=== PATIENT | male | born 1965 | race Caucasian/White ===

== ENCOUNTER → 2019-12-14 | Outpatient (CLI) | payer OTHER ==
[~2019-12-14] VITALS: Ht 188 cm; Wt 110.2 kg
[~2019-12-14] MED LIST: CYMBALTA30 MG PO; HYDROCODON-ACE1 EAC7 PO; HYDROCODONE-AP1 EA11 PO; IBU600 MG PER TUBE; IBUPROFEN 800800 M1 PO; LORCET 5-325 M1 EACH PO; PRINIVIL10 MG PO; TRAMADOL 50 MG50 MG PO
[2019-12-14 12:56] VITALS: BP 137/94
--- NOTE | 2019-12-14 13:08 | NUR ---
Pain Clinic Assessment: 1. History of Osteoarthritis: HANDS SPINE History of Rheumatoid Arthritis: DENIES 2. Height: 6 ft. 2 in. 188.0 cm. Weight: 243.0 lb. oz. 110.224 kg. Patient's BMI: 31.2 3. Vital Signs: BP: 137/94 Pulse: 84 Resp: 16 Temp: 02 Sat: 97 ECG Mon: 4. Pain Intensity: 10 5. Fall Risk: Dizziness: N Needs help standing or walking: Y Fallen in the last 3 months: N Fall risk comments: 6. Patient on Blood Thinner: None 7. History of Hypertension: Y 8. Opioid Therapy greater than 6 weeks: Y Opiate Contract Signed: 9. Risk Assessment Tool Provided: 10. Functional Assessment Tool: 11. Recreational Drug Use: Drug Type: Tobacco Use: Never Smoker Tobacco Type: Amount or Packs/day: How Many Years: Alcohol Use: No Frequency: Quant:
--- NOTE | 2020-01-04 09:56 | HPC ---
[facility] [place] [address] PAIN MANAGEMENT CONSULTATION Name: NERY SHEEHAN Room #: REG NIKOLE Jez#: [id number] Admission: 12/14/19 Attend Phys: Bk Guzman MD Discharge: Date of : 61 Report #: [id number] THIS REPORT FOR: cc: Rajwinder Ennis MD,Rajwinder Guzman,Bk Triplett MD ~ CC: Slick Guzman DATE OF SERVICE: 12/14/2019 CHIEF COMPLAINT: Severe right knee pain, bilateral shoulder pain. I am seeing the patient today at the request of Dr. Cortés and Dr. Barrett prior to surgery. We have also been assigned to see him by his workmen's compensation team. [employer] specifically has asked us to review his use of hydrocodone prior to surgery due Dr. Barrett is concerned that it may not be effective. Today's consultation was primarily focused on his use of medication and the treatment of his intractable pain. It is noted that the workmen's compensation claims management service has asked if we would take over his ongoing medication management. 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 In November 2018, he sustained an injury, which is documented in the orthopedic surgeon's record. Dr. Barrett's most recent note describes bilateral rotator cuff tears as well as a meniscus tear of his knee. He had recommended subacromial decompression and distal clavicle excision on each shoulder. Dr. Barrett also recommended arthroscopic procedure to further evaluate the pathology and felt that a partial meniscectomy would be of value. Because of his discomfort and his request for pain medications, Dr. Barrett recommended that he see a shipyard painter apprentice to help address and manage his concerns and need for opioid medication prior to any procedure being performed. The patient reports that prior to his injury, he was in his normal state of good health without injury or use of pain medicine. 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 They moved with two teenage daughters. He had been on the job for only one week when his injury occurred. He reports that he has been taking hydrocodone 5/325 mg every 4 hours for a total of 6 tablets per day. This equates to 180 tablets per month. His prescriber reportedly is primary care physician. He reports that he has been out of medication for [address] [address] PAIN MANAGEMENT CONSULTATION Name: NERY SHEEHAN Room #: REG CL Jez#: [id number] Admission: 12/14/19 Attend Phys: Bk Guzman MD Discharge: Date of : 61 Report #: [id number] several weeks and his pain has been severe -03/16. Today, pain at rest is a 9. He came in with crutches and a brace on his right knee. MEDICATIONS: As reported by patient, hydrocodone 5/325 one tablet q. 4 hours, lisinopril, ibuprofen 800 mg b.i.d. and tramadol. ALLERGIES: ASPIRIN. PAST MEDICAL HISTORY: Prior surgery for torn ACL. He denies all other medical illnesses. He is on an antihypertensive, but did not note it in his assessment. REVIEW OF SYSTEMS: Positive for fatigue and weakness, weight gain and numbness and tingling sensations in the right hand. SOCIAL HISTORY: He grew up in [place] the [facility]. He has never lived in the [place] until he moved to [place] 2 years ago with his . He reports that his is currently working on her Ph.D. They have two teenage daughters. Because of [facility] restrictions, he says that the daughters have moved to [place] to live with an older sister. There are no longer living in the house with him. He has worked off and on since his workmen's compensation injury. He has been in and out of physical therapy and occupational therapy program. He has built as a football player and reports that he did play football in the at the [employer]. He reports that he recently returned to [place] to visit the family of a friend who from [place] [address]. He aggravated his knee injury near the baggage carousel and his pain has been worse. He was seen in an urgent care center and they recommended the crutches. The patient denies use of tobacco, alcohol or any illicit drugs. He has not tried marijuana. Opioid risk tool score 2, review for addiction risk is 0, lowest possible risk. Impacted pain score is 53 suggesting significant impacts on daily function by his chronic pain, now over a year old. PHYSICAL EXAMINATION: GENERAL: Pleasant gentleman 6 feet 2 inches, 243 pounds, BMI is 31.2. VITAL SIGNS: Blood pressure 137/94, heart rate 84, respirations 16, O2 sat 100% on room air. Pain intensity is 10. MUSCULOSKELETAL: Moves independently from sitting to standing position, but has some antalgic features to his gait. Right knee reveals no effusion. There is tenderness above the patella and below. He has mild epicondyle tenderness. No laxity. Both shoulders are tender at the AC joint. He has mild pain with internal and external rotation as well as abduction. [facility] [address] [place] [address] PAIN MANAGEMENT CONSULTATION Name: NERY SHEEHAN Room #: [facility] Center[facility] [id number] Admission: 12/14/19 Attend Phys: Bk Guzman MD Discharge: Date of : 61 Report #: [id number] IMPRESSION: Chronic pain, most prominent in the right knee, but he also complains of pain in both shoulders. He has had extensive evaluation by Orthopedic Surgery and I have reviewed Dr. Barrett's assessment with him. Right knee meniscus tear, right rotator cuff tear likely full thickness, left high-grade partial thickness rotator cuff tear. Injuries confirmed by MRI. RECOMMENDATIONS: I discussed the importance of remaining active. A sedentary approach to his pain will likely result in further deconditioning, will slow his recovery following surgery and will make his pain worse. We discussed the importance of a daily, regular exercise program. He was open to using a bicycle for exercise. I have asked him to clear that with his orthopedic surgeons. He can do this prior to surgery carefully and it may improve his recovery. We discussed this as pre-therapy. Regarding medication, I discussed providing him with some hydrocodone through our opioid medication management program, which follows the CDC guideline closely. By report, he was taking 30 mg of hydrocodone daily until he ran out 2 weeks ago. He reports improvement in his pain and function with hydrocodone. After his departure from the clinic, I reviewed the [facility] prescription drug monitoring program information. I note that since February of 2019 through 12/06/2019, he has had only tramadol and only one prescription for hydrocodone 15 tablets given on 10/17/2019. He has not been on a regular hydrocodone and this was not made clear to me during our visit. I discussed using hydrocodone to help manage his pain, improve daily function cautiously prior to surgery. We discussed long-term consequences of using an opioid on a daily basis. Dependency can occur even in the absence of addiction. There are numerous side effects to higher dose opioids including constipation and effect on testosterone. We reviewed our written opioid agreement and it was signed, a single prescriber and pharmacy. All prescriptions will be followed closely by prescription drug monitoring program as we did today after his visit. Urine drug screens are performed randomly as part of the terms of our agreement. No new or early prescriptions would be allowed. Discussed the importance of safeguarding all medications to make sure that they remain in his possession at all times. I placed a phone call to the patient of that after his departure to discuss the discrepancy in the prescription drug monitoring program information and his historical report of hydrocodone use. I will allow hydrocodone 5/[address] [address] PAIN MANAGEMENT CONSULTATION Name: NERY SHEEHAN Room #: REG CLI Jez#: [id number] Admission: 12/14/19 Attend Phys: Bk Guzman MD Discharge: Date of : 61 Report #: [id number] 4 times daily prior to surgery. Discontinue tramadol altogether. MME will be 20. Followup visit scheduled in 1 month. <ELECTRONICALLY SIGNED> By: Bk Guzman MD 01/04/20 0956 [id number] [id number] Bk Guzman MD /nt
== END ==
LOC: PAIN 08:15
PROVIDERS: ATTEND Anesthesiology Pain Medicine
DX: G89.29 Other chronic pain (principal); M25.511 Pain in right shoulder; M25.512 Pain in left shoulder; M25.561 Pain in right knee; K80.80 Other cholelithiasis without obstruction; Z79.891 Long term (current) use of opiate analgesic

== ENCOUNTER → 2020-01-08 | Outpatient (CLI) | payer OTHER ==
[~2020-01-08] VITALS: Ht 188 cm; Wt 118.5 kg
--- NOTE | ~2020-01-08 | HPC ---
[facility] [place] [address] PAIN MANAGEMENT CONSULTATION Name: NERY SHEEHAN Room #: REG NIKOLE Kristina.#: [id number] Admission: 01/08/20 Attend Phys: Bk Guzman MD Discharge: Date of : 61 Report #: [id number] THIS REPORT FOR: cc: Rajwinder Ennis MD, Dorothy MD Morgan, Richard L. MD ~ CC: Brenda Slick Barrett MD DATE OF SERVICE: 01/08/2020 CHIEF COMPLAINT: Bilateral shoulder pain, right knee pain. The patient is an angry 54-year-old whom I am seeing today for chronic pain. Throughout his visit, he complained about the lack of attention he believes he should be accorded due to his significant degree of pain. He injured himself within the first 2 weeks of employment. This is reviewed in his initial consultation from 12/14/2019. [place] My initial dictation said it was at a baggage care cell, which I wrote in my notes. He tells me it was actually coming off of a moving walkway. He felt a twisting motion in his knee as he stepped off the walkway aggravating his injury. He believes it was due to the "instability" of his right knee. Today, his pain intensity is 10/10, sharp, stabbing, shooting and constant. It is made worse with all activities including sitting activity, riding a bike. He complains of pain in bed at night. Medication provides some relief. We had a long discussion today about his hydrocodone. He had previously been taking hydrocodone 5/325 and taking it four times daily. His last prescription for hydrocodone was given by ____ in August, so he had had no hydrocodone, other than the prescription from Gladys Thorne who gave him 15 tablets on 10/17/2019. He had led me to believe that he was taking up to 6 a day. When I sent his prescriptions electronically, I sent it for ____ mg tablets an increase in what he had been receiving. I have told him that I would provide him with 7.5 mg tablets. Because of the discrepancy in the prescription drug monitoring program, I changed it to the lower dose. I also did place a phone call to the patient after his departure to discuss the discrepancy and let him know what I was doing. It was left on his cell phone number. I did discontinue his tramadol at last visit. His MME at last visit was 20. Today, the patient said that this is wholly inadequate and that no one understands the degree of pain that he has on a daily basis. He reports that he [address] [place] [address] PAIN MANAGEMENT CONSULTATION Name: NERY SHEEHAN Room #: REG CLEdwar Story#: [id number] Admission: 01/08/20 Attend Phys: Bk Guzman MD Discharge: Date of : 61 Report #: [id number] is suffering greatly as a result of his pain. PHYSICAL EXAMINATION: VITAL SIGNS: He is 6 feet 2 inches, 261 pounds, BMI is 33.5, blood pressure 137/99, heart rate 89, respirations 16, O2 sat 100. GENERAL: Again, his affect is angry. EXTREMITIES: He can move independently from sitting to standing position, walks with markedly antalgic gait. He is wearing a strap below the patella. He was wearing a heavier brace at last visit, but he was discarded that fortunately. Examination of the knee reveals no swelling or redness. The knee is tender throughout. Straight leg raising exacerbates pain. He has pain with any sort of lateral movement testing. He has pain with flexion as well. Both shoulders are uncomfortable with range of motion. IMPRESSION: 1. Chronic pain syndrome. 2. Workmen's compensation with anger and frustration impeding recovery. 3. Pain is high and seems to exceed the degree of physical findings. RECOMMENDATIONS: 1. Begin Cymbalta. I discussed with him the role of Cymbalta as a pain medication. I openly let him know that Cymbalta has classified as an antidepressant, but I was providing it for pain. I think we will have some beneficial effects, he will take it once a day in the morning. 2. Co-analgesic of a nonsteroidal anti-inflammatory drug. He has had experience with numerous medications in the past. I gave him a choice. He shows ibuprofen and I will prescribe 600 mg t.i.d. A lengthy discussion regarding side effects including GI side effects renal side effects and cardiac. He is to discontinue his medication if he has any dyspepsia and to watch his bowel movements closely for any changes in color. If he is taking on a daily basis, I have also encouraged him to drink lots of fluids to ensure that we avoid nonsteroidal anti-inflammatory drug related nephropathy. I discussed also with him the very remote, but possible increased risk in cardiovascular events and he should not ignore chest pain or angina-like symptoms. 3. I am going to go ahead and increase his hydrocodone from 5 to 7.5, 4 tablets a day. We will give him a morphine milligram equivalency of 30. He should take it carefully and cautiously safeguarded from others. He is on an opioid agreement. I have reviewed the prescription drug monitoring information. His last prescription was filled on 12/14/2019. Hopefully, the increase in medication along with polypharmacy will be helpful. Surgery is anticipated. I am concerned because of the significant psychological component to his pain with the anger and frustration. This is well shown to [facility] [address] [place] [address] PAIN MANAGEMENT CONSULTATION Name: NERY SHEEHAN Room #: REG CLEdwar Story#: [id number] Admission: 01/08/20 Attend Phys: Bk Guzman MD Discharge: Date of : 61 Report #: [id number] impede recovery. Perhaps Omarmbalta will ease some of that with his pain modulating affect. Followup visit planned in 1 month. By: [id number] Bk Guzman MD /nt
[2020-01-08 10:56] VITALS: BP 137/99
--- NOTE | 2020-01-08 11:26 | NUR ---
Pain Clinic Assessment: 1. History of Osteoarthritis: HANDS SPINE History of Rheumatoid Arthritis: DENIES 2. Height: 6 ft. 2 in. 188.0 cm. Weight: 261.2 lb. oz. 118.480 kg. Patient's BMI: 33.5 3. Vital Signs: BP: 137/99 Pulse: 89 Resp: 16 Temp: 02 Sat: 100 ECG Mon: 4. Pain Intensity: 10 5. Fall Risk: Dizziness: N Needs help standing or walking: N Fallen in the last 3 months: Y Fall risk comments: 6. Patient on Blood Thinner: None 7. History of Hypertension: Y 8. Opioid Therapy greater than 6 weeks: Y Opiate Contract Signed: 9. Risk Assessment Tool Provided: low-0 10. Functional Assessment Tool: 53/70 11. Recreational Drug Use: Never Drug Type: Tobacco Use: Never Smoker Tobacco Type: Amount or Packs/day: How Many Years: Alcohol Use: No Frequency: Quant:
== END ==
LOC: PAIN 06:49
PROVIDERS: ATTEND Anesthesiology Pain Medicine
DX: G89.4 Chronic pain syndrome (principal); M25.511 Pain in right shoulder; M25.512 Pain in left shoulder; M25.561 Pain in right knee; Z79.899 Other long term (current) drug therapy

== ENCOUNTER → 2020-01-25 | Day surgery (SDC) | payer OTHER ==
[~2020-01-25] MED LIST changes: +ADVIL200 M1 PO
== END | disposition home or self-care (01) ==
LOC: LAB 07:39
PROVIDERS: ATTEND Student in an Organized Health Care Education/Training Program
DX: Z01.812 Encounter for preprocedural laboratory examination (principal); Z20.828 Contact with and (suspected) exposure to other viral communicable diseases; M25.561 Pain in right knee; M25.511 Pain in right shoulder; M25.512 Pain in left shoulder; Z79.899 Other long term (current) drug therapy; Z88.8 Allergy status to other drugs, medicaments and biological substances

== ENCOUNTER 2020-01-29 06:41 | Day surgery (SDC) | payer OTHER ==
[~2020-01-29] VITALS: Ht 188 cm; Wt 113.4 kg
--- NOTE | ~2020-01-29 | O ---
[facility] [place] [address] OPERATIVE REPORT Name: NERY SHEEHAN Room #: 150-3 [facility] M..#: [id number] Admission: 01/29/20 Attend Phys: Slick Cortés MD Discharge: Date of : 61 Report #: [id number] THIS REPORT FOR: cc: Rajwinder Ennis MD,Rajwinder Cortés,Slick Thacker MD ~ CC: Slick Ennis DATE OF SERVICE: 01/29/2020 PREOPERATIVE DIAGNOSIS: Right knee sprain with medial meniscus tear. 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 PROCEDURE: Right knee arthroscopy with partial medial meniscectomy and debridement of medial femoral condyle chondromalacia and debridement of patellofemoral chondromalacia. SURGEON: Slick Cortés MD INDICATIONS: This 54-year-old gentleman injured the right knee while working a number of months ago. Clinical exam and MRI study suggest a tearing of the medial meniscus as well as some generalized chondromalacia. We have elected to go ahead with arthroscopic debridement. DESCRIPTION OF PROCEDURE: The patient was taken to the operating room where he was placed under general anesthesia. Prophylactic intravenous antibiotics were administered. The right knee and leg were meticulously prepped and draped and a thigh tourniquet inflated to 300 mmHg. A lateral suprapatellar inflow cannula was placed and the knee was inflated with normal saline. The arthroscope and shaver were introduced through parapatellar tendon approaches. The various compartments were sequentially visualized and documented with arthroscopic photography. The medial compartment revealed a moderate tearing in the medial meniscus, which appeared to be a combination of both degenerative and traumatic changes. This involved about the inner 1/2 of the meniscus extending from the anterior medial corner back to the posterior horn. There was a moderate sized flap tear, which had flipped upward in the meniscal femoral recess. This was flipped back down into the joint and then resected. The irregular degenerative tearing of the meniscus was debrided, leaving about the outer 1/2 of the meniscus intact and stable. The cartilage surface on the medial tibial plateau demonstrated mild generalized fissuring and grooving with grade 1 to very mild grade [address] [address] OPERATIVE REPORT Name: NERY SHEEHAN Room #: 150-3 [facility].#: [id number] Admission: 01/29/20 Attend Phys: Slick Cortés MD Discharge: Date of : 61 Report #: [id number] chondromalacia damage. There was more severe chondromalacia in the mid weightbearing portion of the medial femoral condyle, which was grade 3. There were no areas of exposed subchondral bone, but there was some loose delaminating cartilage around the margin of this defect, which was debrided back to a smooth even and stable edge. The intercondylar notch revealed normal cruciate ligaments, which appeared to be functioning nicely. There was some synovial hypertrophy and also some bony spurring at the margin of the notch, which was debrided in a limited notchplasty. There was a similar bony spurring just anterior to the anterior cruciate ligament insertion on the tibial plateau, which seemed to impinge when the knee was placed into full extension. This area of bony spurring was also debrided. Once completed, there was no longer any impingement and the notch seemed to be freed up nicely. The cruciate ligaments appeared to be normal. The lateral compartment reveals mild fraying along the inner margin of the lateral meniscus, only very limited debridement here was necessary. There is good cartilage on both the lateral femoral condyle and the lateral tibial plateau without significant damage and no further debridement there was necessary. The patellofemoral articulation reveals rather severe generalized chondromalacia involving both the patella and the trochlear region of the distal femur. This is a grade 3 damage with some loose, irregular delaminating fragments around the margin, particularly on the trochlea. These areas were very gently debrided, removing only the loose and irregular cartilage leaving as much good cartilage in place as possible. Some loose debris in the suprapatellar pouch was also evacuated. At this point, the entire knee was copiously irrigated. All excess fluid was evacuated from the knee. The knee was then injected with 80 mg of Depo-Medrol and 20 mL of 0.5% Marcaine with epinephrine. The puncture sites were closed with interrupted nylon suture. A sterile dressing was applied. The patient was awakened and returned to recovery room in good condition. By: [id number] Slick Cortés MD /vivek
[2020-01-29 08:00] VITALS: BP 135/95
--- NOTE | 2020-01-29 09:28 | EKG ---
[facility] [place] [place] [address] ELECTROCARDIOGRAM REPORT Name: NERY SHEEHAN Room #: 150-3 [facility] M.R.#: [id number] Admission: 01/29/20 Attend Phys: Slick Cortés MD Discharge: Date of : 61 Report #: [id number] THIS REPORT FOR: cc: Rajwinder Ennis MD, Dorothy MD Lundgren,Agusto Joya MD MERGED WITH [facility] THIS REPORT FOR: //name// [facility] Test Date: 2020-01-29 Test Time: 07:20:21 Pat Name: NERY SHEEHAN Department: Room: 150 Gender: M Collections Officer: FARNAZ : 1965 Requested By: Slick Cortés Order Number: [id number] MD: Agusto Marcos Measurements Intervals Creola Rate: 69 P: 14 CO: 172 QRS: -35 QRSD: 95 T: 50 QT: 433 QTc: 464 Interpretive Statements Sinus rhythm Abnormal R-wave progression, early transition Inferior infarct, old No previous ECG available for comparison Electronically Signed On 01-29-2020 9:28:34 CDT by Agusto Marcos [email or web address] <ELECTRONICALLY SIGNED> By: Agusto Marcos MD, [facility] 01/29/20 0928 9 9 Agusto Marcos MD, [facility] /EPI
== END 2020-01-29 08:38 | disposition home or self-care (01) ==
LOC: OR → TBA 06:41 → OR 08:38
PROVIDERS: ATTEND Orthopaedic Surgery
DX: M23.221 Derangement of posterior horn of medial meniscus due to old tear or injury, right knee (principal); M23.300 Other meniscus derangements, unspecified lateral meniscus, right knee; M94.261 Chondromalacia, right knee; M25.561 Pain in right knee; I10 Essential (primary) hypertension; Z98.890 Other specified postprocedural states; Z79.899 Other long term (current) drug therapy; Z88.8 Allergy status to other drugs, medicaments and biological substances
CPT/HCPCS: 50010; 50101; 50405; 56526; 57103; 57180; 62110; 62900; 70005

== ENCOUNTER → 2020-02-05 | Outpatient (CLI) | payer OTHER ==
--- NOTE | ~2020-02-05 | HPC ---
[facility] [place] [address] PAIN MANAGEMENT CONSULTATION Name: NERY SHEEHAN Room #: REG NIKOLE RachelMaryKelly#: [id number] Admission: 02/05/20 Attend Phys: Bk Guzman MD Discharge: Date of : 61 Report #: [id number] THIS REPORT FOR: cc: Rajwinder Ennis MD,Bk Theodore MD, MD ~ CC: Slick Barrett MD DATE OF SERVICE: 02/05/2020 Followup visit for bilateral shoulder pain and right knee pain. Workmen's compensation. The patient returns to pain clinic today and has had surgery with Dr. Slick Cortés. He had an arthroscopic meniscectomy. His knee is wrapped. He is still using a cane. I have talked to him about the importance of proceeding on with physical therapy, so that he can strengthen his knee, the most important emanuel to recovery and also to help control his pain. He still complains of pain in his shoulders. Today is an improvement over his last visit on 01/08/2020. He was quite angry at his last visit, angry at circumstances, angry at the world, angry at the fact that the Workmen's Comp system was cumbersome to him, unhappy that he could not get things fixed immediately. Today, he seems calmer, more relaxed and his pain intensity is a 7.5. MEDICATIONS: Include duloxetine 30 mg. I will renew it today for 90 tablets 1 tablet a day. PHYSICAL EXAMINATION: Pleasant, fit-appearing 54-year-old. Blood pressure is 135/88, heart rate is 80. Moves independently from sitting to standing position, ambulates with a cane. Right knee is wrapped. He has tenderness in both shoulders. IMPRESSION: 1. Chronic pain syndrome. 2. Management of high risk medications under terms of written opioid agreement. His opioid agreement was signed today. 3. Frustration and anger improved today. RECOMMENDATION: Counseled about the importance of returning to physical therapy. Optimistic outlook was provided. He should recover. [facility] [address] [place] [address] PAIN MANAGEMENT CONSULTATION Name: RAMYSCOOBYAilynNERY Room #: REG CLEdwar Story#: [id number] Admission: 02/05/20 Attend Phys: Bk Guzman MD Discharge: Date of : 61 Report #: [id number] Discussed the importance of using the lowest effective dose of his medication, particularly the opioids. He has been on them for about a year and has never had a halfway opioid therapy. We would like to taper him off of medications and I told him at next visit we will try to reduce his oxycodone from 7.5 mg tablets to 5 mg tablets. Follow up in 1 month. By: [id number] Bk Guzman MD /nt
== END ==
LOC: PAIN 06:57
PROVIDERS: ATTEND Anesthesiology Pain Medicine
DX: G89.4 Chronic pain syndrome (principal); F11.20 Opioid dependence, uncomplicated; R45.4 Irritability and anger

== ENCOUNTER → 2020-03-04 | Outpatient (CLI) | payer OTHER ==
[~2020-03-04] VITALS: Ht 188 cm; Wt 118.4 kg
[~2020-03-04] MED LIST changes: +IBU600 MG PO
--- NOTE | ~2020-03-04 | HPC ---
[facility] [place] [address] PAIN MANAGEMENT CONSULTATION Name: NERY SHEEHAN Room #: REG NIKOLE JuárezKellyMaryKelly#: [id number] Admission: 03/04/20 Attend Phys: Bk Guzman MD Discharge: Date of : 61 Report #: [id number] THIS REPORT FOR: cc: Rajwinder Ennis MD,Rajwinder Guzman,Bk Triplett MD ~ CC: Rajwinder Guzman DATE OF SERVICE: 03/04/2020 Followup visit for medication management for chronic pain. The patient was in the pain clinic today for consultation. I spent about 20 minutes with him today discussing recovery and the importance of regaining full function without the need for chronic pain medication. His pain intensity is improved with surgery and time. He is using lower doses of opioid and our intent to continue tapering this further over the course of the next month or two was reviewed. I would like to have him off of opioids within the next 90 days or so. His duloxetine 30 mg seems to be helpful as well. I think overall he is recognizing the need to look positively at his outcome from that physical therapy and return to full function are well within his reach. Pain report is still around 7 with movement. His affect; however, is markedly improved. He seems more positive, upbeat, less angry at circumstances. He has had his arthroscopy and has recovered nicely from it. Impact pain score is 36 today, that is an improvement from his initial presentation when he was so frustrated. His impacted pain score on that date was 53. Improvements have been noted in several levels including mood, enjoyment of life, relationships with others. He still scores high for walking ability, normal work and sleep 01/14. PHYSICAL EXAMINATION: GENERAL: He is a very fit-appearing 54-year-old. VITAL SIGNS: Blood pressure 140/103, heart rate 88, respirations 16, O2 sat 98. MUSCULOSKELETAL: He has some tenderness bilaterally of the shoulders, but good range of motion. Examination of the right knee reveals tenderness, but good improvement and ability to flex and extend. There is no lateral instability. IMPRESSION: 1. Chronic pain syndrome. 2. Management of high risk medications on opioid agreement. We will continue to discuss the importance of tapering and using the lowest effective dose. [address] [address] PAIN MANAGEMENT CONSULTATION Name: NERY SHEEHAN Room #: REG CL Kristina.#: [id number] Admission: 03/04/20 Attend Phys: Bk Guzman MD Discharge: Date of : 61 Report #: [id number] Long-term goal is elimination of opioid medications as a management. PLAN: I will continue his medications at current dosing. I have discussed using half a tablet and we will see him back in 4-6 weeks. Prescription will be for lower dose and fewer pills as we continue to taper him off of medication. He is in line with these goals. By: [id number] MD marcelino Larkin
[2020-03-04 10:34] VITALS: BP 140/103
--- NOTE | 2020-03-04 11:07 | NUR ---
Pain Clinic Assessment: 1. History of Osteoarthritis: HANDS SPINE History of Rheumatoid Arthritis: DENIES 2. Height: 6 ft. 2 in. 188.0 cm. Weight: 261.0 lb. oz. 118.389 kg. Patient's BMI: 33.5 3. Vital Signs: BP: 140/103 Pulse: 88 Resp: 16 Temp: 02 Sat: 98 ECG Mon: 4. Pain Intensity: 7 5. Fall Risk: Dizziness: N Needs help standing or walking: N Fallen in the last 3 months: N Fall risk comments: 6. Patient on Blood Thinner: None 7. History of Hypertension: Y 8. Opioid Therapy greater than 6 weeks: Y Opiate Contract Signed: 9. Risk Assessment Tool Provided: low-0 10. Functional Assessment Tool: 11. Recreational Drug Use: Never Drug Type: Tobacco Use: Never Smoker Tobacco Type: Amount or Packs/day: How Many Years: Alcohol Use: No Frequency: Quant:
== END ==
LOC: PAIN 07:02
PROVIDERS: ATTEND Anesthesiology Pain Medicine
DX: G89.29 Other chronic pain (principal); F11.20 Opioid dependence, uncomplicated

== ENCOUNTER → 2020-04-01 | Outpatient (CLI) | payer OTHER ==
[~2020-04-01] VITALS: Ht 188 cm; Wt 117.3 kg
--- NOTE | ~2020-04-01 | HPC ---
[facility] [place] [address] PAIN MANAGEMENT CONSULTATION Name: NERY SHEEHAN Room #: REG NIKOLE JuárezKellyMary.#: [id number] Admission: 04/01/20 Attend Phys: Bk Guzman MD Discharge: Date of : 61 Report #: [id number] CC: AZALEA Guzman DATE OF SERVICE: 04/01/2020 Followup visit for the pain and medication management. The patient returns to pain clinic today for renewal of medication. I am seeing him at monthly intervals. Our goal is to taper him from his hydrocodone as he continues to see improvement. He has seen improvement in range of motion, but still complains bitterly of daily pain scoring his pain as a 7/10 despite hydrocodone 7.5 four times daily. He also complains of pain in his shoulders and believes that he will need surgery at some point in time. Our expressed goal is to continue tapering his medication as his knee improves. We had a spirited discussion today about reducing his hydrocodone from 7.5/325 four times a day to 5/325. We decided to take it slower by giving him 60 tablets of hydrocodone 7.5 and 60 tablets of hydrocodone 5.0. In this way that he can taper his medications slowly to 25 mg a day from 30 mg a day. He is a fairly aggressive the patient and challenged my recommendations on several levels. I assured him that I respected his complaints of pain and the intensity that he described. I also feel that the longer around the clock opioids are provided for such injuries will lead to dependence on opioids for management of chronic intractable pain. I would like to continue to work towards the lowest effective dose. In no way that I disrespect him or suggest that he was amplifying his pain. We both agreed that reduction in his opioid dose and hopefully eventually going off of them might be a reasonable goal. PHYSICAL EXAMINATION: GENERAL: He is a fit-appearing 54-year-old, 6 feet 2 inches, BMI of 33.2. VITAL SIGNS: Blood pressure 155/97, pulse is 87, respirations 20, O2 sat 100. He is wearing a mask due to COVID restrictions. MUSCULOSKELETAL: Moves independently from sitting to standing position. His gait is moderately antalgic. He has some restrictions in range of motion in flexion of the left knee and mild tenderness. Swelling is diminished. No redness or inflammation. IMPRESSION: 1. Chronic pain syndrome. 2. Management of high risk medications on an opioid agreement with efforts of tapering. Prescriptions were provided for 1 month at a reduction to 25 mg per day. By: [id number] Bk Guzman MD /nt
[2020-04-01 10:33] VITALS: BP 155/97
--- NOTE | 2020-04-01 10:38 | NUR ---
Pain Clinic Assessment: 1. History of Osteoarthritis: HANDS SPINE History of Rheumatoid Arthritis: DENIES 2. Height: 6 ft. 2 in. 188.0 cm. Weight: 258.6 lb. oz. 117.300 kg. Patient's BMI: 33.2 3. Vital Signs: BP: 155/97 Pulse: 87 Resp: 20 Temp: 02 Sat: 100 ECG Mon: 4. Pain Intensity: 7 5. Fall Risk: Dizziness: N Needs help standing or walking: N Fallen in the last 3 months: N Fall risk comments: 6. Patient on Blood Thinner: None 7. History of Hypertension: Y 8. Opioid Therapy greater than 6 weeks: Y Opiate Contract Signed: 9. Risk Assessment Tool Provided: low-0 10. Functional Assessment Tool: 11. Recreational Drug Use: Never Drug Type: Tobacco Use: Never Smoker Tobacco Type: Amount or Packs/day: How Many Years: Alcohol Use: No Frequency: Quant:
== END ==
LOC: PAIN 06:49
PROVIDERS: ATTEND Anesthesiology Pain Medicine
DX: G89.4 Chronic pain syndrome (principal); F11.20 Opioid dependence, uncomplicated

== ENCOUNTER → 2020-04-29 | Outpatient (CLI) | payer OTHER ==
[~2020-04-29] VITALS: Ht 188 cm; Wt 115.7 kg
[~2020-04-29] MED LIST changes: +ENDOCET 5-3251 EACH PO
[2020-04-29 11:19] VITALS: BP 127/92
--- NOTE | 2020-04-29 11:34 | NUR ---
Pain Clinic Assessment: 1. History of Osteoarthritis: HANDS SPINE History of Rheumatoid Arthritis: DENIES 2. Height: 6 ft. 2 in. 188.0 cm. Weight: 255.0 lb. oz. 115.668 kg. Patient's BMI: 32.7 3. Vital Signs: BP: 127/92 Pulse: 98 Resp: 20 Temp: 02 Sat: 100 ECG Mon: 4. Pain Intensity: 6.5 5. Fall Risk: Dizziness: N Needs help standing or walking: N Fallen in the last 3 months: N Fall risk comments: 6. Patient on Blood Thinner: None 7. History of Hypertension: Y 8. Opioid Therapy greater than 6 weeks: Y Opiate Contract Signed: 9. Risk Assessment Tool Provided: low-0 10. Functional Assessment Tool: 11. Recreational Drug Use: Never Drug Type: Tobacco Use: Never Smoker Tobacco Type: Amount or Packs/day: How Many Years: Alcohol Use: No Frequency: Quant:
== END ==
LOC: PAIN 06:49
PROVIDERS: ATTEND Anesthesiology Pain Medicine
DX: M25.561 Pain in right knee (principal); M25.512 Pain in left shoulder; M25.511 Pain in right shoulder; Z79.899 Other long term (current) drug therapy

== ENCOUNTER → 2020-06-27 | Outpatient (CLI) | payer OTHER ==
[~2020-06-27] VITALS: Ht 188 cm; Wt 109.9 kg
[2020-06-27 14:19] VITALS: BP 107/73
--- NOTE | 2020-06-27 14:27 | NUR ---
Pain Clinic Assessment: 1. History of Osteoarthritis: HANDS SPINE History of Rheumatoid Arthritis: DENIES 2. Height: 6 ft. 2 in. 188.0 cm. Weight: 242.2 lb. oz. 109.861 kg. Patient's BMI: 31.1 3. Vital Signs: BP: 107/73 Pulse: 83 Resp: 16 Temp: 02 Sat: 97 ECG Mon: 4. Pain Intensity: 6 5. Fall Risk: Dizziness: N Needs help standing or walking: N Fallen in the last 3 months: N Fall risk comments: 6. Patient on Blood Thinner: None 7. History of Hypertension: Y 8. Opioid Therapy greater than 6 weeks: Y Opiate Contract Signed: 9. Risk Assessment Tool Provided: low-0 10. Functional Assessment Tool: 11. Recreational Drug Use: Never Drug Type: Tobacco Use: Never Smoker Tobacco Type: Amount or Packs/day: How Many Years: Alcohol Use: No Frequency: Quant:
== END ==
LOC: PAIN 06:51
PROVIDERS: ATTEND Anesthesiology Pain Medicine
DX: G89.4 Chronic pain syndrome (principal); M25.561 Pain in right knee; M25.511 Pain in right shoulder; M25.512 Pain in left shoulder; Z79.891 Long term (current) use of opiate analgesic

== ENCOUNTER → 2020-07-25 | Outpatient (CLI) | payer OTHER ==
[~2020-07-25] VITALS: Ht 188 cm; Wt 113.2 kg
[2020-07-25 11:22] VITALS: BP 116/79
--- NOTE | 2020-07-25 11:34 | NUR ---
Pain Clinic Assessment: 1. History of Osteoarthritis: HANDS SPINE History of Rheumatoid Arthritis: DENIES 2. Height: 6 ft. 2 in. 188.0 cm. Weight: 249.6 lb. oz. 113.218 kg. Patient's BMI: 32.0 3. Vital Signs: BP: 116/79 Pulse: 88 Resp: 16 Temp: 02 Sat: 97 ECG Mon: 4. Pain Intensity: 6-9 5. Fall Risk: Dizziness: N Needs help standing or walking: N Fallen in the last 3 months: N Fall risk comments: 6. Patient on Blood Thinner: None 7. History of Hypertension: Y 8. Opioid Therapy greater than 6 weeks: Y Opiate Contract Signed: 02/05/20 9. Risk Assessment Tool Provided: low-0 10. Functional Assessment Tool: 11. Recreational Drug Use: Never Drug Type: Tobacco Use: Never Smoker Tobacco Type: Amount or Packs/day: How Many Years: Alcohol Use: No Frequency: Quant:
== END ==
LOC: PAIN 07:02
PROVIDERS: ATTEND Anesthesiology Pain Medicine
DX: M25.561 Pain in right knee (principal); M25.511 Pain in right shoulder; M25.512 Pain in left shoulder; F11.20 Opioid dependence, uncomplicated; Z88.8 Allergy status to other drugs, medicaments and biological substances; Z79.899 Other long term (current) drug therapy

== ENCOUNTER → 2020-09-26 | Outpatient (CLI) | payer OTHER ==
[~2020-09-26] VITALS: Ht 188 cm; Wt 111.3 kg
[2020-09-26 09:00] VITALS: BP 133/77
--- NOTE | 2020-09-26 09:15 | NUR ---
Pain Clinic Assessment: 1. History of Osteoarthritis: HANDS SPINE History of Rheumatoid Arthritis: DENIES 2. Height: 6 ft. 2 in. 188.0 cm. Weight: 245.4 lb. oz. 111.313 kg. Patient's BMI: 31.5 3. Vital Signs: BP: 133/77 Pulse: 70 Resp: 16 Temp: 02 Sat: 98 ECG Mon: 4. Pain Intensity: 8-9 5. Fall Risk: Dizziness: N Needs help standing or walking: N Fallen in the last 3 months: N Fall risk comments: 6. Patient on Blood Thinner: None 7. History of Hypertension: Y 8. Opioid Therapy greater than 6 weeks: Y Opiate Contract Signed: 02/05/20 9. Risk Assessment Tool Provided: low-0 10. Functional Assessment Tool: 11. Recreational Drug Use: Never Drug Type: Tobacco Use: Never Smoker Tobacco Type: Amount or Packs/day: How Many Years: Alcohol Use: No Frequency: Quant:
== END ==
LOC: PAIN 08:45
PROVIDERS: ATTEND Anesthesiology Pain Medicine
DX: G89.29 Other chronic pain (principal); M25.561 Pain in right knee; M25.562 Pain in left knee; Z88.8 Allergy status to other drugs, medicaments and biological substances; Z79.891 Long term (current) use of opiate analgesic; Z79.899 Other long term (current) drug therapy

== ENCOUNTER → 2020-10-28 | Outpatient (CLI) | payer OTHER ==
[~2020-10-28] VITALS: Ht 188 cm; Wt 110.4 kg
[2020-10-28 15:11] VITALS: BP 115/73
--- NOTE | 2020-10-28 15:35 | NUR ---
Pain Clinic Assessment: 1. History of Osteoarthritis: HANDS SPINE History of Rheumatoid Arthritis: DENIES 2. Height: 6 ft. 2 in. 188.0 cm. Weight: 243.4 lb. oz. 110.406 kg. Patient's BMI: 31.2 3. Vital Signs: BP: 115/73 Pulse: 77 Resp: 16 Temp: 02 Sat: 96 ECG Mon: 4. Pain Intensity: 7 5. Fall Risk: Dizziness: N Needs help standing or walking: N Fallen in the last 3 months: N Fall risk comments: 6. Patient on Blood Thinner: None 7. History of Hypertension: Y 8. Opioid Therapy greater than 6 weeks: Y Opiate Contract Signed: 02/05/20 9. Risk Assessment Tool Provided: low-0 10. Functional Assessment Tool: 11. Recreational Drug Use: Never Drug Type: Tobacco Use: Never Smoker Tobacco Type: Amount or Packs/day: How Many Years: Alcohol Use: No Frequency: Quant:
== END ==
LOC: PAIN 09:52
PROVIDERS: ATTEND Anesthesiology Pain Medicine
DX: G89.4 Chronic pain syndrome (principal); M25.561 Pain in right knee; M25.512 Pain in left shoulder; I10 Essential (primary) hypertension; Z79.899 Other long term (current) drug therapy

== ENCOUNTER → 2021-01-23 | Outpatient (CLI) | payer OTHER ==
[~2021-01-23] VITALS: Ht 188 cm; Wt 112.8 kg
[~2021-01-23] MED LIST changes: +NAPROSYN500 MG PO; +NEURONTIN 300M300 M2 PO
[2021-01-23 15:13] VITALS: BP 143/89
--- NOTE | 2021-01-23 15:30 | NUR ---
Pain Clinic Assessment: 1. History of Osteoarthritis: HANDS SPINE History of Rheumatoid Arthritis: DENIES 2. Height: 6 ft. 2 in. 188.0 cm. Weight: 248.6 lb. oz. 112.764 kg. Patient's BMI: 31.9 3. Vital Signs: BP: 143/89 Pulse: 85 Resp: 14 Temp: 02 Sat: 97 ECG Mon: 4. Pain Intensity: 9 5. Fall Risk: Dizziness: N Needs help standing or walking: N Fallen in the last 3 months: N Fall risk comments: 6. Patient on Blood Thinner: None 7. History of Hypertension: Y 8. Opioid Therapy greater than 6 weeks: Y Opiate Contract Signed: 02/05/20 9. Risk Assessment Tool Provided: low-0 10. Functional Assessment Tool: 11. Recreational Drug Use: Never Drug Type: Tobacco Use: Never Smoker Tobacco Type: Amount or Packs/day: How Many Years: Alcohol Use: No Frequency: Quant:
== END ==
LOC: PAIN 13:42
PROVIDERS: ATTEND Anesthesiology Pain Medicine
DX: M17.11 Unilateral primary osteoarthritis, right knee (principal); M25.561 Pain in right knee; M94.261 Chondromalacia, right knee; Z88.8 Allergy status to other drugs, medicaments and biological substances; Z79.891 Long term (current) use of opiate analgesic; Z79.899 Other long term (current) drug therapy